=== PATIENT | male | born 1965 | race Caucasian/White ===

== ENCOUNTER 2018-11-20 09:48 | Inpatient (IN) ==
[2018-11-20] MEDS ORDERED: Aspirin 81 MG TAB.CHEW PO ONE (09:50)
[2018-11-20] MEDS ORDERED: Nitroglycerin 0.4 MG TAB.SUBL SL ONE (09:59)
[2018-11-20] MEDS: Nitroglycerin 0.4 MG TAB.SUBL SL PRN ×3 (10:04→10:17)
--- NOTE | 2018-11-20 10:05 | Emergency Department Note ---
Disposition Clinical Impression: Chest pain Qualifiers: Chest pain type: unspecified Qualified Code(s): R07.9 - Chest pain, unspecified Pancreatitis Qualifiers: Chronicity: acute Pancreatitis type: unspecified pancreatitis type Acute pancreatitis complication: unspecified Qualified Code(s): K85.90 - Acute pancreatitis without necrosis or infection, unspecified Disposition: Admitted As Inpatient Condition: Good Time of Disposition: 10:08 General Adult HPI - General Stated complaint: CP Time Seen by Provider: 11/20/18 09:49 Source: patient Mode of arrival: ambulatory Limitations: no limitations Nursing Notes Reviewed: Yes Vital Signs Reviewed: Yes - History of Present Illness HPI Narrative: 53 year old male presenst to the ED with complaints of chest pain that is midsternal and radaites across her chest without radiation. Garcia states that this started about 30 minutes ago and has multiple risk factors including HTN, hyperlipidemia, diabetes, and (+) family history o ACS, and he smokes, thus giving him moderate heart score without evidence of troponin. Garcia dnies exertinal dsypnea or diaphoresis but states that is started about 30 minutes ago. He is an eMT. He also has a history for pancreatitis and states that this time it feels different from his previous attacks. His last pacreatitis attack was over 4-5 years ago. Garcia denies cough, fever, or vomitting. Chest pain is descibred as sharp and pressure like. Garcia has no preivos history of DVt/PE - Related Data Previous Rx's Medication Instructions Recorded Meclizine [Antivert] 12.5 mg PO TID #30 tablet 03/05/18 Allergies Allergy/AdvReac Type Severity Reaction Status Date / Time No Known Allergies Allergy Verified 03/05/18 11:52 Constitutional: Denies: fever, chills, weakness, weight change Eyes: Denies: eye pain, eye discharge, vision change ENT ED: Denies: ear pain, throat pain, dental pain, hearing loss, epistaxis, congestion, dysphagia Cardiovascular: Reports: chest pain. Denies: palpitations, dyspnea on exertion, edema, syncope Respiratory: Denies: cough, dyspnea, wheezes, hemoptysis, stridor Gastrointestinal: Denies: abdominal pain, nausea, vomiting, diarrhea, constipation, hematemesis, melena, hematochezia Genitourinary: Denies: urgency, dysuria, frequency, hematuria Musculoskeletal: Denies: back pain, neck pain, arthralgia, myalgia Integumentary: Denies: rash, abrasion, lesions Neurological: Denies: headache, weakness, numbness, paresthesias, confusion, abnormal gait, vertigo Psychiatric: Denies: anxiety, depression, suicidal thoughts, homicidal thoughts, auditory hallucinations, visual hallucinations Endocrine: Denies: fatigue Hematological/Lymphatic: Denies: easy bleeding, easy bruising Allergic/Immunologic: Denies: facial swelling, urticaria Past Medical History - Past Medical History Medical history: Reports: diabetes, GERD, hyperlipidemia, hypertension Psychiatric history: Reports: anxiety, depression - Social History Smoking Status: Current every day smoker Alcohol use: Reports: rarely Drug use: Reports: none Physical Exam - General Limitations: no limitations General appearance: alert, in no apparent distress - Head Head exam: atraumatic, normocephalic, normal inspection - Eye Eye exam: Present: normal appearance, PERRL, EOMI - Expanded Eye Exam Pupils: Bilateral: reactive - ENT ENT exam: normal exam, normal oropharynx, mucous membranes moist - Expanded ENT Exam External ear exam: Present: normal external inspection Mouth exam: Present: normal external inspection Teeth exam: Present: normal inspection Throat exam: Present: normal inspection - Neck Neck exam: Present: normal inspection, full ROM, trachea midline - Chest Chest inspection: Present: normal inspection, symmetric chest wall rise - Respiratory Respiratory exam: Present: normal lung sounds bilaterally - Cardiovascular Cardiovascular exam: Present: regular rate, normal rhythm, normal heart sounds - Abdominal Exam Abdominal exam: Present: soft, Non-Tender. Absent: tenderness, distention, guarding, rebound, rigidity - Extremities Exam Extremities exam: Present: normal inspection, full ROM. Absent: tenderness, pedal edema - Expanded Upper Extremity Exam Shoulder exam: Present: normal inspection, full ROM Arm exam: Present: normal inspection, full ROM Elbow exam: Present: normal inspection, full ROM Forearm/Wrist exam: Present: normal inspection, full ROM Hand exam: Present: normal inspection, full ROM Vascular exam: Normal: capillary refill, radial pulse - Expanded Lower Extremity Exam Hip/Pelvis exam: Present: normal inspection, full ROM Upper leg exam: Present: normal inspection, full ROM Knee exam: Present: normal inspection, full ROM Lower leg exam: Present: normal inspection, full ROM Ankle exam: Present: normal inspection, full ROM Foot/toe exam: Present: normal inspection, full ROM Neurovascular/Tendon exam: Absent: motor deficit, sensory deficit, tendon deficit - Back Exam Back exam: Present: normal inspection, full ROM. Absent: tenderness - Neurological Exam Neurological exam: Present: alert, oriented X3 - Expanded Neurological Exam Patient oriented to: Present: person, place, time Coma Scale Eye Opening: Spontaneous Coma Scale Motor Response: Obeys Commands Coma Scale Verbal Response: Oriented Coma Scale Total: 15 - Psychiatric Psychiatric exam: Present: normal affect, normal mood - Skin Skin exam: Present: warm, dry, intact, normal color Course Course Narrative: will do a chest pain workup and add lipase/hepatic panels. - Consultations Consultation #1: discussed case with Dr. Hammer and she owen garcia for admission Time: 11:33 Vital Signs Temperature 98.6 F 11/20/18 09:56 Pulse Rate 64 11/20/18 09:56 Respiratory Rate 14 11/20/18 09:56 Blood Pressure 161/77 11/20/18 09:56 O2 Sat by Pulse Oximetry 100 11/20/18 09:56 Temperature 98.6 F 11/20/18 09:56 Pulse Rate 58 11/20/18 10:07 Respiratory Rate 14 11/20/18 09:56 Blood Pressure 123/79 11/20/18 10:07 O2 Sat by Pulse Oximetry 100 11/20/18 09:56 Oxygen Delivery Oxygen Delivery Room Air Medical Decision Making - Medical Records Medical records reviewed: Yes I reviewed the patient's medical records. - Lab Data Lab results reviewed: Yes I reviewed the patient's lab results. Result diagrams: 11/20/18 10:03 11/20/18 10:03 Lab Results 11/20/18 11/20/18 11/20/18 Range/Units 10:03 10:03 10:03 WBC 11.4 H (4.3-11.1) K/mcL RBC 5.08 (4.19-5.50) M/mcL Hgb 15.9 (12.9-16.9) g/dL Hct 45.8 (37.5-50.1) % MCV 90.2 (83.0-100.0) fL MCH 31.3 (28.0-33.3) pg MCHC 34.7 (31.6-35.5) g/dL RDW 12.5 (11.5-14.5) % Plt Count 302 (140-400) K/mcL MPV 9.8 (9.4-12.4) fL Immature Gran % 0.5 (0-4) % Seg Neutrophils % 54.2 % Lymphocytes % 35.1 % Monocytes % 7.7 % Eosinophils % 1.8 % Basophils % 0.7 % Neutrophils # 6.2 (1.6-8.9) K/mcL Lymphocytes # 4.0 (0.6-4.6) K/mcL Monocytes # 0.9 (0.0-1.3) K/mcL Eosinophils # 0.2 (0.0-0.6) K/mcL Basophils # 0.1 (0.0-0.2) K/mcL PT 11.2 (9.4-12.1) Seconds INR 1.0 APTT 30.9 (26.0-36.0) Seconds Sodium 137 (136-145) mEq/L Potassium 4.3 (3.5-5.1) mEq/L Chloride 103 (98-107) mEq/L Carbon Dioxide 22 L (23-29) mEq/L BUN 14 (6-20) mg/dL Creatinine 0.71 (0.70-1.30) mg/dL Est GFR ( Amer) > 60 (> 60) Est GFR (Non-Af Amer) > 60 (> 60) BUN/Creatinine Ratio 20 (6-26) Glucose 159 H (70-105) mg/dL Calculated Osmolality 288 (280-300) Calcium 9.9 (8.6-10.3) mg/dL Total Bilirubin 0.7 (0.3-1.0) mg/dL Direct Bilirubin 0.1 (0.0-0.2) mg/dL Indirect Bilirubin 0.6 (0.0-1.2) mg/dL ALT 21 (7-52) Units/L Alkaline Phosphatase 46 (34-104) Units/L Troponin I < 0.03 (< 0.04) ng/mL Serum Total Protein 7.4 (6.4-8.9) g/dL Albumin 4.7 (3.5-5.7) g/dL Globulin 2.7 (2.4-3.5) g/dL Albumin/Globulin Ratio 1.7 (1.1-2.2) Lipase > 1800 H (11-82) Units/L - Radiology Data Radiology results reviewed: Yes I reviewed the patient's radiology results. - EKG Data EKG #1 EKG attestation: Yes I reviewed and interpreted this EKG. EKG results narrative: NSR with rate of 66. NO STEMi. normal interlva. T wave flattening of V1. no change from 03/05/18. 0955 Heart Score - Score History: Moderately Suspicious EKG: Non Specific repolarisation Disturbance Age: 45-65 Risk Factors: Equal/Greater than 3 risk factor or history of atherosclerotic disease Troponin: Less than normal limit HEART Score Total: 5
[2018-11-20] MEDS ORDERED: GI Cocktail 40 ML EACH PO ONE (10:20)
[2018-11-20] MEDS ORDERED: *HR* FentaNYL (PF) 100 MCG/2 ML VIAL EP ONE (10:20)
[2018-11-20 10:27] LABS: Basophils # 0.1 K/mcL (0.0-0.2); Basophils % 0.7 %; Eosinophils # 0.2 K/mcL (0.0-0.6); Eosinophils % 1.8 %; Hematocrit 45.8 % (37.5-50.1); Hemoglobin 15.9 g/dL (12.9-16.9); Immature Granulocytes % 0.5 % (0-4); Lymphocytes % 35.1 %; Mean Corpuscular HGB Conc 34.7 g/dL (31.6-35.5); Mean Corpuscular Hemoglobin 31.3 pg (28.0-33.3); Mean Corpuscular Volume 90.2 fL (83.0-100.0); Mean Platelet Volume 9.8 fL (9.4-12.4); Monocytes # 0.9 K/mcL (0.0-1.3); Monocytes % 7.7 %; Neutrophils # 6.2 K/mcL (1.6-8.9); Platelet Count 302 K/mcL (140-400); Red Blood Count 5.08 M/mcL (4.19-5.50); Red Cell Distribution Width 12.5 % (11.5-14.5); Segmented Neutrophils % 54.2 %
[2018-11-20 10:35] LABS: Prothrombin Time 11.2 Seconds (9.4-12.1)
[2018-11-20 10:38] LABS: Activated Partial Thrombo Time 30.9 Seconds (26.0-36.0)
[2018-11-20 10:55] LABS: BUN/Creatinine Ratio 20 (6-26); Blood Urea Nitrogen 14 mg/dL (6-20); Carbon Dioxide 22 mEq/L (23-29); Chloride 103 mEq/L (98-107); Potassium 4.3 mEq/L (3.5-5.1); Sodium 137 mEq/L (136-145); Troponin I < 0.03 ng/mL (< 0.04)
[2018-11-20 10:56] LABS: Alanine Aminotransferase 21 Units/L (7-52); Albumin 4.7 g/dL (3.5-5.7); Albumin/Globulin Ratio 1.7 (1.1-2.2); Alkaline Phosphatase 46 Units/L (34-104); Bilirubin,Direct 0.1 mg/dL (0.0-0.2); Bilirubin,Indirect 0.6 mg/dL (0.0-1.2); Bilirubin,Total 0.7 mg/dL (0.3-1.0); Calcium 9.9 mg/dL (8.6-10.3); Globulin 2.7 g/dL (2.4-3.5); Glucose 159 mg/dL (70-105); Osmolality,Calculated 288 (280-300); Total Protein 7.4 g/dL (6.4-8.9); eGFR For Non-African Americans > 60 (> 60)
[2018-11-20 11:09] LABS: Lipase > 1800 Units/L (11-82)
[2018-11-20] MEDS ORDERED: *HR* Morphine 2 MG/ML SYRINGE IVP ONE (11:10)
[2018-11-20 11:47] LABS: Aspartate Amino Transferase 16 Units/L (13-39)
--- NOTE | 2018-11-20 13:13 | Internal Med History&Physical ---
Date of Encounter: 11/20/18 Time of Encounter: 13:12 Internal Medicine - H&P: HPI Chief complaint: CP History of present illness: 53 year old male with PMH HTN, hyperlipidemia, diabetes, and (+) family history o ACS, and TOBACCO abuse who presents to the ED with complaints of chest pain that is sharp and pressure and (like a band ) across his chest and radaites to abdomen. Patient denies associated dyspnea, diaphoresis, palpitation, paroxysmal nocturnal dyspnea, orthopnea or progressive worsening of lower extremity swelling. The patient have history of pancreatitis in light of that the ER obtained at these levels which was elevated, the patient troponin was within normal limit and EKG shows no significant ST-T wave changes, patient was admitted to rule out acute cardiac syndrome and for further management of pancreatitis. Past Med Surg Social Fam HX - Past Medical History Attestation: No The following information was validated with the patient. Medical history: diabetes, GERD, hyperlipidemia, hypertension Additional medical history: pancreatitits Psychiatric history: anxiety, depression - Social History Smoking Status: Current every day smoker Alcohol use: rarely Drug use: none Internal Medicine - H&P: Meds ALPRAZolam [Xanax 1 MG Tablet] 1 mg PO BID PRN 11/20/18 [History] Atenolol 100 mg PO DAILY 11/20/18 [History] Citalopram [CeleXA] 40 mg PO HS 11/20/18 [History] Gemfibrozil [Lopid] 600 mg PO BID 11/20/18 [History] GlipiZIDE 5 mg PO HS 11/20/18 [History] Melatonin 5 mg PO HS 11/20/18 [History] Omeprazole [PriLOSEC] 20 mg PO HS 11/20/18 [History] Simvastatin [Zocor] 40 mg PO HS 11/20/18 [History] Zolpidem [Ambien] 10 mg PO HS 11/20/18 [History] Zolpidem [Ambien] 10 mg PO HS 11/20/18 [History] metFORMIN [Glucophage] 500 mg PO HS 11/20/18 [History] Allergy/AdvReac Type Severity Reaction Status Date / Time No Known Allergies Allergy Verified 03/05/18 11:52 All Systems PM: A 10-system review of systems was performed and is negative for pertinent findings except as documented above in the HPI. - Constitutional Vitals: Temp Pulse Resp BP Pulse Ox 98.6 F 63 16 112/59 99 11/20/18 09:56 11/20/18 13:00 11/20/18 13:00 11/20/18 13:00 11/20/18 13:00 General appearance: Present: A&O X 3 Exam: As below - Head Head exam: Present: atraumatic, normocephalic - Eye Eye exam: Present: PERRL, conjuntiva pink, sclera anicteric Pupils: Present: PERRL - Neck Neck exam general surgery: Present: supple, trachea midline. Absent: lymphadenopathy - Respiratory Respiratory exam: Present: rhonchi. Absent: accessory muscle use, rales, wheezes - Cardiovascular Cardiovascular exam: Present: RRR, +S1, +S2. Absent: diastolic murmur, gallop, rubs, systolic murmur - GI/Abdominal GI/Abdominal exam: Present: normal bowel sounds, soft, tenderness, no peritoneal signs. Absent: distended - Extremities Exam Extremities exam: Present: warm, radial pulses palpable and symmetrical. Absent: calf tenderness, cyanotic, pedal edema - Neurological Exam Neurological exam: Present: CN II-XII intact, oriented X3, no focal deficits. Absent: pronater drift, facial droop, speech deficit - Skin Skin exam: Present: dry, intact Internal Med - H&P Results - Labs CBC & Chem 7: 11/21/18 03:35 11/21/18 03:35 Labs: Short CBC 11/20/18 Range/Units 10:03 WBC 11.4 H (4.3-11.1) K/mcL Hgb 15.9 (12.9-16.9) g/dL Hct 45.8 (37.5-50.1) % Plt Count 302 (140-400) K/mcL Neutrophils # 6.2 (1.6-8.9) K/mcL BMP 11/20/18 10:03 Sodium 137 Potassium 4.3 Chloride 103 Carbon Dioxide 22 L BUN 14 Creatinine 0.71 Glucose 159 H Calcium 9.9 Cardiac Enzymes 11/20/18 Range/Units 10:03 Troponin I < 0.03 (< 0.04) ng/mL Liver Function 11/20/18 Range/Units 10:03 Total Bilirubin 0.7 (0.3-1.0) mg/dL Direct Bilirubin 0.1 (0.0-0.2) mg/dL AST 16 (13-39) Units/L ALT 21 (7-52) Units/L Alkaline Phosphatase 46 (34-104) Units/L Albumin 4.7 (3.5-5.7) g/dL - Impressions ITS Impressions Chest X-Ray 11/20/18 09:50 IMPRESSION: No acute cardiopulmonary disease. D/ / 11/20/2018 10:10:47 Marquise Kelley MD / [employer] Interpreting Provider: Marquise Kelley MD - Assessment and Plan (1) Chest pain Current Visit: Yes Status: Acute Assessment and plan: Chest pain, atypical cardiac enzymes x 2 q 8 hr - EKG \ in AM - ASA - O2 by NC to keep SpO2 greater than 92% - CBCD, BMP in AM - Fasting lipids - Morphine 1 mg IV q 2-4 hr PRN chest pain - Tylenol 650 mg PO q 4-6 hr PRN headache - Heparin 5000 U SQ BID - 2D Echo Qualifiers: Chest pain type: unspecified Qualified Code(s): R07.9 - Chest pain, unspecified (2) Pancreatitis Current Visit: Yes Status: Acute Assessment and plan: NPO apart from meds, advance diet as serrated - IV fluid - EKG in AM - Morphine 2 mg IV q 2-4 hr PRN pain - Liver/gallbladder U/S - CBCD, CMP in AM Qualifiers: Chronicity: acute Pancreatitis type: unspecified pancreatitis type Acute pancreatitis complication: unspecified Qualified Code(s): K85.90 - Acute pancreatitis without necrosis or infection, unspecified (3) Hyperlipidemia Current Visit: Yes Status: Acute Assessment and plan: We will obtain fasting lipid profile in a.m., and continue home medications Qualifiers: Qualified Code(s): E78.5 - Hyperlipidemia, unspecified (4) Hypertension Current Visit: Yes Status: Acute Assessment and plan: We will continue home antihypertensive meds and monitor blood pressure while inpatient Qualifiers: Qualified Code(s): I10 - Essential (primary) hypertension (5) Diabetes mellitus Current Visit: Yes Status: Acute Assessment and plan: We will hold oral medication and We will start the patient and insulin sliding coverage with moderate insulin coverage Qualifiers: Qualified Code(s): E11.9 - Type 2 diabetes mellitus without complications (6) DVT prophylaxis Current Visit: Yes Status: Acute Assessment and plan: We will start heparin subcutaneous - Time Spent With Patient Total time spent is greater than 50% in coordination of care (as documented) at patient's floor/unit and/or counseling patient:
[2018-11-20] MEDS ORDERED: Acetaminophen 325 MG TABLET PO PRN (15:11)
[2018-11-20] MEDS ORDERED: Naloxone 0.4 MG/ML INJ IVP PRN (15:11)
[2018-11-20] MEDS ORDERED: Ondansetron ODT 4 MG TAB.RAPDIS SL PRN (15:11)
[2018-11-20] MEDS ORDERED: OXYCODONE Oral CONC 10 MG/0.5 ML ORAL.SYG SL PRN (15:16)
[2018-11-20] MEDS ORDERED: *HR* HYDROmorphone (PF) 1 MG/ML SYRINGE IVP ONE (15:45)
[2018-11-20] MEDS ORDERED: Nitroglycerin 0.4 MG TAB.SUBL SL PRN (15:51)
[2018-11-20] MEDS: 0.9 % Sodium Chloride 1,000 ML IVC SCH (16:07)
[2018-11-20] MEDS: Pantoprazole 40 MG VIAL IVP SCH (17:36)
[2018-11-20] MEDS: *HR* HYDROmorphone (PF) 1 MG/ML SYRINGE IVP PRN (20:15)
[2018-11-20] MEDS ORDERED: *HR* LORazepam 2 MG/ML VIAL IVP ONE (20:41)
[2018-11-20] MEDS: Ketorolac 15 MG/ML VIAL IVP PRN (23:08)
[2018-11-21] MEDS: *HR* HYDROmorphone (PF) 1 MG/ML SYRINGE IVP PRN ×5 (00:25→20:44)
[2018-11-21] MEDS: 0.9 % Sodium Chloride 1,000 ML IVC SCH ×2 (02:19→15:53)
[2018-11-21] MEDS: Ketorolac 15 MG/ML VIAL IVP PRN ×3 (03:36→18:53)
[2018-11-21 04:19] LABS: Basophils % 0.4 %; Eosinophils # 0.2 K/mcL (0.0-0.6); Eosinophils % 1.6 %; Hemoglobin 14.5 g/dL (12.9-16.9); Immature Granulocytes % 0.5 % (0-4); Lymphocytes # 3.5 K/mcL (0.6-4.6); Lymphocytes % 32.4 %; Mean Corpuscular HGB Conc 33.7 g/dL (31.6-35.5); Mean Corpuscular Volume 91.9 fL (83.0-100.0); Mean Platelet Volume 9.6 fL (9.4-12.4); Monocytes # 0.9 K/mcL (0.0-1.3); Monocytes % 8.3 %; Neutrophils # 6.1 K/mcL (1.6-8.9); Platelet Count 251 K/mcL (140-400); Red Blood Count 4.68 M/mcL (4.19-5.50); Red Cell Distribution Width 12.8 % (11.5-14.5); Segmented Neutrophils % 56.8 %
[2018-11-21 04:26] LABS: INR 1.1; Prothrombin Time 12.4 Seconds (9.4-12.1)
[2018-11-21 04:28] LABS: Activated Partial Thrombo Time 30.2 Seconds (26.0-36.0)
[2018-11-21 04:40] LABS: Alanine Aminotransferase 16 Units/L (7-52); Albumin 4.1 g/dL (3.5-5.7); Albumin/Globulin Ratio 1.8 (1.1-2.2); Alkaline Phosphatase 39 Units/L (34-104); Aspartate Amino Transferase 13 Units/L (13-39); BUN/Creatinine Ratio 18 (6-26); Bilirubin,Total 0.6 mg/dL (0.3-1.0); Blood Urea Nitrogen 15 mg/dL (6-20); Calcium 8.8 mg/dL (8.6-10.3); Carbon Dioxide 27 mEq/L (23-29); Chloride 104 mEq/L (98-107); Chol/HDL Ratio 5.3 (0-4.9); Cholesterol 144 mg/dL (< 200); Globulin 2.3 g/dL (2.4-3.5); Glucose 108 mg/dL (70-105); HDL Cholesterol 27 mg/dL (40-59); LDL Cholesterol,Calculated 63 mg/dL (0-99); Magnesium 1.9 mg/dL (1.6-2.6); Osmolality,Calculated 289 (280-300); Phosphorous 3.6 mg/dL (2.7-4.5); Potassium 3.9 mEq/L (3.5-5.1); Sodium 139 mEq/L (136-145); Total Protein 6.4 g/dL (6.4-8.9); Triglycerides 270 mg/dL (< 150); eGFR For Non-African Americans > 60 (> 60)
[2018-11-21] MEDS: Pantoprazole 40 MG VIAL IVP SCH ×2 (05:08→18:44)
--- NOTE | 2018-11-21 06:38 | Electrocardiograph Report ---
[place] [facility] Test Date: 2018-11-20 Pat Name: Kenneth Au Department: EXAM6 Room: 3B23 Gender: M [employer]: : 1965 Requested By: Ciera Severino Order Number: [id number] Reading MD: Yuri Dubose Measurements Intervals [place] Rate: 66 P: 66 SD: 168 QRS: 67 QRSD: 94 T: 51 QT: 427 QTc: 448 Interpretive Statements Sinus rhythm Electronically Signed On 11-21-2018 6:36:41 EDT by Yuri Dubose
[2018-11-21] MEDS: Aspirin 325 MG TABLET PO SCH (08:32)
[2018-11-21] MEDS ORDERED: *HR* Dextrose 50 % in Water (Syg) 50 ML SYRINGE IVP PRN (09:30)
[2018-11-21] MEDS ORDERED: D5% in Water 1,000 ML IVC PRN (09:30)
[2018-11-21] MEDS ORDERED: Dextrose Gel 15 GM/37.5 ML TUBE PO PRN ×2 (09:30)
[2018-11-21] MEDS: *HR* LORazepam 2 MG/ML VIAL IVP PRN ×2 (12:17→22:02)
[2018-11-21 12:34] LABS: Estimated Average Glucose 177 mg/dl; Hemoglobin A1C 7.8 %
[2018-11-21] MEDS: Insulin LISPRO 300 UNITS/3 ML VIAL SQ SCH ×2 (12:38→17:34)
--- NOTE | 2018-11-21 12:45 | Internal Med Progress Note ---
Hospitalist Progress Note - Encounter Date of Encounter: 11/21/18 Time of Encounter: 12:43 - Subjective Interval History: Patient seen and examined at bedside. Patient states that he feels better today. He states his abdominal pain is much improved today. He denies any chest pain, shortness of breath, nausea, vomiting, diarrhea. - Exam Vitals: Temp Pulse Resp BP Pulse Ox 97.8 F 79 16 143/77 95 11/21/18 12:26 11/21/18 12:26 11/21/18 12:11/21/18 12:11/21/18 12:26 Exam: Gen.: Alert and oriented 3, no acute distress Heart: Regular rate and rhythm, no murmurs, rubs, gallops Abdomen: Soft, tender to deep palpation in the epigastrium. Hypoactive bowel sounds. No rebound, guarding, rigidity. - Assessment and Plan (1) Pancreatitis Current Visit: Yes Status: Acute Assessment and Plan: Patient presented with signs and symptoms acute pancreatitis including epigastric pain and lipase greater than 1800. Obt[address] CT of abdomen and pelvis today which I personally reviewed that showed inflammation around the pancreas consistent with acute pancreatitis. Symptomatically the patient has improved and his pain is minimal at this time. Continue IV fluids and pain control. Allow patients and sips of water. If patient continues to improve then we will start clear liquid diet tomorrow. (2) Chest pain Current Visit: Yes Status: Resolved Assessment and Plan: Resolved. Likely due to acute pancreatitis. Highly doubt cardiac etiology. (3) Hyperlipidemia Current Visit: Yes Status: Acute Assessment and Plan: Mild hypertriglyceridemia, restart simvastatin and Lopid once able to take by mouth medication. (4) Hypertension Current Visit: Yes Status: Acute Assessment and Plan: Blood pressure stable at this time. (5) Diabetes mellitus Current Visit: Yes Status: Acute Assessment and Plan: Blood sugar under good control. Continue sliding scale insulin while nothing by mouth. Hemoglobin A1c 7.8. (6) DVT prophylaxis Current Visit: Yes Status: Acute Assessment and Plan: Heparin 5000 units subcutaneous twice a day - Time Spent with Patient Total time spent is greater than 50% in coordination of care (as documented) at patient's floor/unit and/or counseling patient: Internal Medicine: Result - Labs CBC & Chem 7: 11/21/18 03:35 11/21/18 03:35 Labs: Short CBC 11/21/18 Range/Units 03:35 WBC 10.7 (4.3-11.1) K/mcL Hgb 14.5 (12.9-16.9) g/dL Hct 43.0 (37.5-50.1) % Plt Count 251 (140-400) K/mcL Neutrophils # 6.1 (1.6-8.9) K/mcL BMP 11/21/18 03:35 Sodium 139 Potassium 3.9 Chloride 104 Carbon Dioxide 27 BUN 15 Creatinine 0.82 Glucose 108 H Calcium 8.8 Cardiac Enzymes 11/20/18 11/20/18 11/21/18 Range/Units 17:00 23:00 03:35 Troponin I < 0.03 < 0.03 < 0.03 (< 0.04) ng/mL Liver Function 11/21/18 Range/Units 03:35 Total Bilirubin 0.6 (0.3-1.0) mg/dL AST 13 (13-39) Units/L ALT 16 (7-52) Units/L Alkaline Phosphatase 39 (34-104) Units/L Albumin 4.1 (3.5-5.7) g/dL - ABG Interpretation ABG results: PT/INR, D-dimer PT 12.4 Seconds (9.4-12.1) H 11/21/18 03:35 - Impressions Impressions Echocardiogram 11/20/18 15:51 Impressions: LVEF 60%. Normal LV chamber size, wall thickness and function. Normal left ventricular diastolic function. Normal right ventricular structure and function. Mild mitral regurgitation. No evidence of pulmonary hypertension. Left Ventricular Wall Motion: Rest Echo Findings All wall segments showed normal motion. Findings: Study Quality * Technically adequate exam. ECG Findings * Sinus bradycardia. Left Ventricle * LVEF 60%. * Normal LV chamber size, wall thickness and function. * Normal left ventricular diastolic function. Right Ventricle * Normal right ventricular structure and function. Left Atrium * Normal left atrial size. Right Atrium * Normal right atrial size. Aortic Valve * Aortic valve not well visualized. * Mildly calcified aortic valve leaflets. * No aortic regurgitation. * No aortic stenosis. Mitral Valve * Mild mitral regurgitation. * No mitral stenosis. * Normal mitral valve structure. Tricuspid Valve * Normal tricuspid valve structure. * Trace tricuspid regurgitation. * No tricuspid stenosis. * No evidence of pulmonary hypertension. Pulmonic Valve * Pulmonic valve not well visualized. Aorta * Normally sized aortic root. Pericardium * The pericardium appears normal. IVC * The IVC is not well evaluated. Pulmonary Artery * Pulmonary artery not well visualized. Liver Ultrasound 11/20/18 15:53 IMPRESSION: 1. Hepatic steatosis and mild hepatomegaly. 2. Trace gallbladder sludge without ultrasound findings of acute cholecystitis or cholelithiasis. 3. Nonvisualization of the pancreas, obscured by overlying bowel gas. D/ / Fady Vigil / Fady Vigil Interpreting Provider: Fady Vigil Abdomen/Pelvis CT 11/21/18 07:32 IMPRESSION: Mild acute pancreatitis especially involving the pancreatic tail. Mild peripancreatic inflammatory stranding. Trace perisplenic ascites. Marked fatty infiltration of the liver. No evident calcified gallstone. No other acute abnormality identified. D/ / James Kessler MD / James Kessler MD Interpreting Provider: James Kessler MD Consult Discharge Plan - Plan Referrals: Yuri Dubose DO [Primary Care Provider] - 11/27/18 1:30 pm __ (1) Pancreatitis Qualifiers: Chronicity: acute Pancreatitis type: unspecified pancreatitis type Acute pancreatitis complication: unspecified Qualified Code(s): K85.90 - Acute pancreatitis without necrosis or infection, unspecified (2) Chest pain Qualifiers: Chest pain type: unspecified Qualified Code(s): R07.9 - Chest pain, unspecified (3) Hyperlipidemia Qualifiers: Qualified Code(s): E78.5 - Hyperlipidemia, unspecified (4) Hypertension Qualifiers: Qualified Code(s): I10 - Essential (primary) hypertension (5) Diabetes mellitus Qualifiers: Diabetes mellitus type: type 2 Diabetes mellitus group home insulin use: without moth exterminator use Diabetes mellitus complication status: without complication Qualified Code(s): E11.9 - Type 2 diabetes mellitus without complications
[2018-11-21] MEDS: Nicotine 21 MG PATCH.TD24 TD SCH (15:53)
[2018-11-21] MEDS: *HR* Heparin 5,000 UNIT/ML VIAL SQ SCH (18:44)
[2018-11-22] MEDS: Insulin LISPRO 300 UNITS/3 ML VIAL SQ SCH ×4 (00:25→17:04)
[2018-11-22] MEDS: 0.9 % Sodium Chloride 1,000 ML IVC SCH (02:22)
[2018-11-22] MEDS: *HR* HYDROmorphone (PF) 1 MG/ML SYRINGE IVP PRN (02:23)
[2018-11-22 05:29] LABS: Basophils % 0.5 %; Eosinophils # 0.3 K/mcL (0.0-0.6); Eosinophils % 3.1 %; Hematocrit 39.4 % (37.5-50.1); Hemoglobin 13.1 g/dL (12.9-16.9); Immature Granulocytes % 0.4 % (0-4); Lymphocytes # 2.6 K/mcL (0.6-4.6); Lymphocytes % 32.4 %; Mean Corpuscular HGB Conc 33.2 g/dL (31.6-35.5); Mean Corpuscular Volume 90.4 fL (83.0-100.0); Monocytes # 0.7 K/mcL (0.0-1.3); Monocytes % 8.5 %; Neutrophils # 4.5 K/mcL (1.6-8.9); Platelet Count 216 K/mcL (140-400); Red Blood Count 4.36 M/mcL (4.19-5.50); Red Cell Distribution Width 11.9 % (11.5-14.5); Segmented Neutrophils % 55.1 %
[2018-11-22] MEDS: Pantoprazole 40 MG VIAL IVP SCH ×2 (05:37→18:41)
[2018-11-22] MEDS: *HR* Heparin 5,000 UNIT/ML VIAL SQ SCH ×2 (05:37→18:41)
[2018-11-22 05:51] LABS: Alanine Aminotransferase 15 Units/L (7-52); Albumin 4.1 g/dL (3.5-5.7); Albumin/Globulin Ratio 1.9 (1.1-2.2); Alkaline Phosphatase 38 Units/L (34-104); Aspartate Amino Transferase 15 Units/L (13-39); BUN/Creatinine Ratio 17 (6-26); Bilirubin,Direct 0.1 mg/dL (0.0-0.2); Bilirubin,Indirect 0.5 mg/dL (0.0-1.2); Bilirubin,Total 0.6 mg/dL (0.3-1.0); Blood Urea Nitrogen 12 mg/dL (6-20); Calcium 8.8 mg/dL (8.6-10.3); Carbon Dioxide 24 mEq/L (23-29); Chloride 104 mEq/L (98-107); Globulin 2.2 g/dL (2.4-3.5); Glucose 87 mg/dL (70-105); Lipase 189 Units/L (11-82); Magnesium 1.8 mg/dL (1.6-2.6); Osmolality,Calculated 287 (280-300); Potassium 3.7 mEq/L (3.5-5.1); Sodium 139 mEq/L (136-145); Total Protein 6.3 g/dL (6.4-8.9); eGFR For Non-African Americans > 60 (> 60)
[2018-11-22] MEDS ORDERED: *HR* OxyCODONE Immed Rel 5 MG TABLET PO PRN ×2 (08:35)
[2018-11-22] MEDS: Nicotine 21 MG PATCH.TD24 TD SCH (08:49)
[2018-11-22] MEDS: Aspirin 325 MG TABLET PO SCH (08:49)
[2018-11-22] MEDS: ALPRAZolam 1 MG TABLET PO SCH ×2 (09:45→20:35)
--- NOTE | 2018-11-22 11:20 | Internal Med Progress Note ---
Hospitalist Progress Note - Encounter Date of Encounter: 11/22/18 Time of Encounter: 11:18 - Subjective Interval History: Patient seen and examined at bedside. Patient states that he continues to feel better. Denies any abdominal pain, chest pain, nausea, vomiting. He tolerated sips of water and ice chips yesterday okay. He states he is hungry. - Exam Vitals: Temp Pulse Resp BP Pulse Ox 98.5 F 53 20 146/78 98 11/22/18 07:11 11/22/18 07:11 11/22/18 07:11 11/22/18 07:11 11/22/18 07:11 Exam: Gen.: Alert and oriented 3, no acute distress Heart: Regular rate and rhythm, no murmurs, rubs, gallops Abdomen: Soft, nontender, normoactive bowel sounds. No rebound, guarding, rigidity. - Assessment and Plan (1) Pancreatitis Current Visit: Yes Status: Acute Assessment and Plan: Overall improving. Lipase significantly decreased. No pain on exam. We will start clear liquid diet today. Advance diet as tolerated. Discontinue IV pain control continue with oral pain medication as needed. (2) Chest pain Current Visit: Yes Status: Resolved Assessment and Plan: Resolved with this time, likely due to pancreatitis as above. (3) Hyperlipidemia Current Visit: Yes Status: Acute Assessment and Plan: Mild hypertriglyceridemia, restarted statin today. (4) Hypertension Current Visit: Yes Status: Acute Assessment and Plan: Blood pressure under adequate control at this time. (5) Diabetes mellitus Current Visit: Yes Status: Acute Assessment and Plan: Blood sugar under good control. Continue sliding scale insulin, transition to before meals at bedtime. Hemoglobin A1c 7.8. (6) DVT prophylaxis Current Visit: Yes Status: Acute Assessment and Plan: Heparin 5000 units subcutaneous twice a day - Time Spent with Patient Total time spent is greater than 50% in coordination of care (as documented) at patient's floor/unit and/or counseling patient: Internal Medicine: Result - Labs CBC & Chem 7: 11/22/18 05:06 11/22/18 05:06 Labs: Short CBC 11/22/18 Range/Units 05:06 WBC 8.1 (4.3-11.1) K/mcL Hgb 13.1 (12.9-16.9) g/dL Hct 39.4 (37.5-50.1) % Plt Count 216 (140-400) K/mcL Neutrophils # 4.5 (1.6-8.9) K/mcL BMP 11/22/18 05:06 Sodium 139 Potassium 3.7 Chloride 104 Carbon Dioxide 24 BUN 12 Creatinine 0.71 Glucose 87 Calcium 8.8 Liver Function 11/22/18 Range/Units 05:06 Total Bilirubin 0.6 (0.3-1.0) mg/dL Direct Bilirubin 0.1 (0.0-0.2) mg/dL AST 15 (13-39) Units/L ALT 15 (7-52) Units/L Alkaline Phosphatase 38 (34-104) Units/L Albumin 4.1 (3.5-5.7) g/dL - ABG Interpretation ABG results: PT/INR, D-dimer PT 12.4 Seconds (9.4-12.1) H 11/21/18 03:35 Consult Discharge Plan - Plan Referrals: Yuri Dubose DO [Primary Care Provider] - 11/27/18 1:30 pm (1) Pancreatitis Qualifiers: Chronicity: acute Pancreatitis type: unspecified pancreatitis type Acute pancreatitis complication: unspecified Qualified Code(s): K85.90 - Acute pancreatitis without necrosis or infection, unspecified (2) Chest pain Qualifiers: Chest pain type: unspecified Qualified Code(s): R07.9 - Chest pain, unspecified (3) Hyperlipidemia Qualifiers: Qualified Code(s): E78.5 - Hyperlipidemia, unspecified (4) Hypertension Qualifiers: Hypertension type: essential hypertension Qualified Code(s): I10 - Essential (primary) hypertension (5) Diabetes mellitus Qualifiers: Diabetes mellitus type: type 2 Diabetes mellitus custodial insulin use: without long term care pharmacist use Diabetes mellitus complication status: without complication Qualified Code(s): E11.9 - Type 2 diabetes mellitus without complications
[2018-11-22] MEDS ORDERED: Insulin LISPRO 300 UNITS/3 ML VIAL SQ SCH (21:00)
[2018-11-22] MEDS: Ketorolac 15 MG/ML VIAL IVP PRN (22:10)
[2018-11-23] MEDS: *HR* Heparin 5,000 UNIT/ML VIAL SQ SCH (05:27)
[2018-11-23] MEDS: Pantoprazole 40 MG VIAL IVP SCH (05:27)
[2018-11-23] MEDS: Ketorolac 15 MG/ML VIAL IVP PRN (05:36)
[2018-11-23 06:20] LABS: Basophils # 0.1 K/mcL (0.0-0.2); Basophils % 0.5 %; Eosinophils # 0.4 K/mcL (0.0-0.6); Eosinophils % 4.3 %; Hematocrit 40.7 % (37.5-50.1); Immature Granulocytes % 0.4 % (0-4); Lymphocytes % 32.7 %; Mean Corpuscular HGB Conc 34.4 g/dL (31.6-35.5); Mean Corpuscular Hemoglobin 30.6 pg (28.0-33.3); Mean Corpuscular Volume 89.1 fL (83.0-100.0); Mean Platelet Volume 10.1 fL (9.4-12.4); Monocytes # 0.8 K/mcL (0.0-1.3); Neutrophils # 4.9 K/mcL (1.6-8.9); Platelet Count 252 K/mcL (140-400); Red Blood Count 4.57 M/mcL (4.19-5.50); Red Cell Distribution Width 12.1 % (11.5-14.5); Segmented Neutrophils % 53.1 %
[2018-11-23 06:42] LABS: BUN/Creatinine Ratio 12 (6-26); Blood Urea Nitrogen 9 mg/dL (6-20); Calcium 9.8 mg/dL (8.6-10.3); Carbon Dioxide 27 mEq/L (23-29); Chloride 105 mEq/L (98-107); Glucose 119 mg/dL (70-105); Lipase 103 Units/L (11-82); Osmolality,Calculated 290 (280-300); Sodium 140 mEq/L (136-145); eGFR For Non-African Americans > 60 (> 60)
[2018-11-23 07:18] VITALS: BP 131/76
[2018-11-23] MEDS: Aspirin 325 MG TABLET PO SCH (08:06)
[2018-11-23] MEDS: ALPRAZolam 1 MG TABLET PO SCH (08:06)
[2018-11-23] MEDS: Nicotine 21 MG PATCH.TD24 TD SCH (08:06)
[2018-11-23] MEDS: Insulin LISPRO 300 UNITS/3 ML VIAL SQ SCH (08:09)
--- NOTE | 2018-11-23 11:32 | Discharge Summary ---
Orders not resulted at time of discharge: Pending orders 11/21/18 06:00 ECG 12 lead ECG [ECG] AM 0600 Date of Encounter: 11/23/18 Time of Encounter: 11:30 - Discharge Diagnosis (1) Pancreatitis Priority: Primary Status: Acute Qualifiers: Chronicity: acute Pancreatitis type: unspecified pancreatitis type Acute pancreatitis complication: unspecified Qualified Code(s): K85.90 - Acute pancreatitis without necrosis or infection, unspecified (2) Hyperlipidemia Priority: Secondary Status: Chronic Qualifiers: Qualified Code(s): E78.5 - Hyperlipidemia, unspecified (3) Hypertension Priority: Secondary Status: Chronic Qualifiers: Hypertension type: essential hypertension Qualified Code(s): I10 - Essential (primary) hypertension (4) Diabetes mellitus Priority: Secondary Status: Chronic Qualifiers: Diabetes mellitus type: type 2 Diabetes mellitus 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 Au is a 53 year old male with PMH HTN, HLD and diabetes who presented to [facility] on 11/20 2017 with complaints of abdominal pain. He was found to have acute pancreatitis and was admitted for further workup and treatment. ABD CT showed mild acute pancreatitis with marked fatty infiltration of the liver. His symptoms resolved with IV fluids, pain control and GI rest. Patient apparently also had complained of chest pain which was thought to be secondary to pancreatitis. He underwent an echocardiogram that showed preserved EF and no wall motion abnormalities. On day of discharge patient stated he was back to baseline. He denied chest pain, no shortness of breath, no abdominal pain, no nausea vomiting or diarrhea. He tolerated regular diet prior to discharge without difficulty. Patient stated he feels better and requested discharge home. Was advised to return to the ER if dominant symptoms recur. Patient verbalizes understanding. Discharge discussed with: patient - Time Spent with Patient Total time spent providing and/or coordinating discharge services: Time spent: Less than 30 minutes - Discharge Medications Prescriptions: Continued ALPRAZolam [Xanax 1 MG Tablet] 1 mg PO BID Melatonin 5 mg PO HS metFORMIN [Glucophage] 500 mg PO HS Gemfibrozil [Lopid] 600 mg PO BID Atenolol 50 mg PO DAILY Simvastatin [Zocor] 40 mg PO HS Omeprazole [PriLOSEC] 20 mg PO HS Zolpidem [Ambien] 10 mg PO HS Citalopram [CeleXA] 40 mg PO HS glipiZIDE [Glucotrol] 5 mg PO DAILY Home Medications: ALPRAZolam [Xanax 1 MG Tablet] 1 mg PO BID 11/20/18 [History] Atenolol 50 mg PO DAILY 11/20/18 [History] Citalopram [CeleXA] 40 mg PO HS 11/20/18 [History] Gemfibrozil [Lopid] 600 mg PO BID 11/20/18 [History] Melatonin 5 mg PO HS 11/20/18 [History] Omeprazole [PriLOSEC] 20 mg PO HS 11/20/18 [History] Simvastatin [Zocor] 40 mg PO HS 11/20/18 [History] Zolpidem [Ambien] 10 mg PO HS 11/20/18 [History] glipiZIDE [Glucotrol] 5 mg PO DAILY 11/20/18 [History] metFORMIN [Glucophage] 500 mg PO HS 11/20/18 [History] Allergies/Adverse Reactions: Allergy/AdvReac Type Severity Reaction Status Date / Time No Known Allergies Allergy Verified 11/21/18 16:24 Date of admission: 11/21/18 17:55 Primary care physician: Yuri Dubose DO Discharging clinician: Sherry Fofana Anticipated date of discharge: 11/23/18 - Constitutional Vitals: Temp Pulse Resp BP Pulse Ox 97.7 F 50 16 131/76 98 11/23/18 07:12 11/23/18 07:12 11/23/18 07:12 11/23/18 07:12 11/23/18 08:13 General appearance: Present: A&O X 3, pleasant, no acute distress Exam: . - Head Head exam: Present: atraumatic, normocephalic - Eye Eye exam: Present: PERRL, conjuntiva pink, sclera anicteric Pupils: Present: PERRL - Neck Neck exam general surgery: Present: supple, trachea midline. Absent: lymphadenopathy - Respiratory Respiratory exam: Present: CTAB. Absent: accessory muscle use, rales, rhonchi, wheezes - Cardiovascular Cardiovascular exam: Present: RRR, +S1, +S2. Absent: diastolic murmur, gallop, rubs, systolic murmur - GI/Abdominal GI/Abdominal exam: Present: normal bowel sounds, soft, no peritoneal signs. Absent: distended, tenderness - Extremities Exam Extremities exam: Present: warm, radial pulses palpable and symmetrical. Absent: calf tenderness, cyanotic, pedal edema - Neurological Exam Neurological exam: Present: CN II-XII intact, oriented X3, no focal deficits. Absent: pronater drift, facial droop, speech deficit - Skin Skin exam: Present: dry, intact - Patient Status Disposition: Home, Self-Care Condition: Good Functional capacity at discharge: independent ambulation Overall status at discharge: patient is back to baseline - Discharge Instructions Instructions: Pancreatitis (DC) Follow Up With: Yuri Dubose DO [Primary Care Provider] - 11/27/18 1:30 pm - Diet and Activity Activity: resume usual activities as tolerated Diet: advance to your usual diet
== END 2018-11-23 11:37 | disposition home or self-care (01) | DRG 440 ==
LOC: EMEROOARM 09:48 → 3BNU 09:48 → SUATTDRO 13:22 → 3BNU 14:07
PROVIDERS: ADMIT Internal Medicine Nephrology; ATTEND Internal Medicine

== ENCOUNTER 2020-02-25 03:39 | Inpatient (IN) ==
[2020-02-25] MEDS ORDERED: *HR* HYDROmorphone (PF) 1 MG/ML SYRINGE IVP ONE (04:17)
[2020-02-25] MEDS ORDERED: Ondansetron 4 MG/2 ML VIAL IVP ONE (04:17)
[2020-02-25 04:18] LABS: Basophils # 0.1 K/mcL (0.0-0.2); Basophils % 0.6 %; Eosinophils # 0.4 K/mcL (0.0-0.6); Eosinophils % 2.3 %; Hematocrit 46.2 % (37.5-50.1); Hemoglobin 15.8 g/dL (12.9-16.9); Immature Granulocytes % 0.7 % (0-4); Lymphocytes # 5.3 K/mcL (0.6-4.6); Lymphocytes % 29.1 %; Mean Corpuscular HGB Conc 34.2 g/dL (31.6-35.5); Mean Corpuscular Hemoglobin 30.6 pg (28.0-33.3); Mean Corpuscular Volume 89.4 fL (83.0-100.0); Mean Platelet Volume 10.3 fL (9.4-12.4); Monocytes # 1.9 K/mcL (0.0-1.3); Monocytes % 10.5 %; Neutrophils # 10.2 K/mcL (1.6-8.9); Platelet Count 323 K/mcL (140-400); Red Blood Count 5.17 M/mcL (4.19-5.50); Red Cell Distribution Width 12.6 % (11.5-14.5); Segmented Neutrophils % 56.8 %
[2020-02-25 04:25] LABS: Bilirubin,Urine Negative (Negative); Blood,Urine Negative (Negative); Clarity,Urine Clear (Clear); Color,Urine Light-Yellow (Yellow); Glucose,Urine (UA) 300 mg/dL (Normal); Ketones,Urine Negative (Negative); Leukocyte Esterase,Urine Negative (Negative); Mucus,Urine Few per lpf (None-Few); Nitrite,Urine Negative (Negative); PH,Urine 6.5 pH Units (5.0-8.0); Protein,Urine 30 mg/dL (Neg-Trace); RBC,Urine 0-3 per hpf (0-3); Specific Gravity,Urine 1.021 (1.010-1.025); Squamous Epithelial Cell,Urine Few per hpf (None-Few); Urobilinogen,Urine Normal (Normal); WBC,Urine 0-3 per hpf (0-3)
[2020-02-25 04:54] LABS: Alanine Aminotransferase 24 Units/L (7-52); Albumin 4.5 g/dL (3.5-5.7); Albumin/Globulin Ratio 1.6 (1.1-2.2); Alkaline Phosphatase 46 Units/L (34-104); Aspartate Amino Transferase 15 Units/L (13-39); BUN/Creatinine Ratio 25 (6-26); Bilirubin,Indirect 0.4 mg/dL (0.0-1.0); Bilirubin,Total 0.4 mg/dL (0.3-1.0); Blood Urea Nitrogen 18 mg/dL (6-20); Calcium 9.6 mg/dL (8.6-10.3); Carbon Dioxide 27 mEq/L (23-29); Chloride 99 mEq/L (98-107); Globulin 2.8 g/dL (2.4-3.5); Glucose 274 mg/dL (70-105); Lipase > 1800 Units/L (11-82); Osmolality,Calculated 292 (280-300); Sodium 135 mEq/L (136-145); Total Protein 7.3 g/dL (6.4-8.9); eGFR For African Americans > 60 (> 60); eGFR For Non-African Americans > 60 (> 60)
[2020-02-25] MEDS ORDERED: Ringers Solution, Lactated 1,000 ML IVC ONE (05:36)
[2020-02-25] MEDS ORDERED: *HR* HYDROmorphone (PF) 1 MG/ML SYRINGE IVP PRN (05:40)
[2020-02-25] MEDS ORDERED: D5% in Lactated Ringers 1,000 ML IVC SCH (05:45)
[2020-02-25] MEDS ORDERED: Naloxone 0.4 MG/ML INJ IVP PRN (06:32)
[2020-02-25] MEDS ORDERED: Ondansetron 4 MG/2 ML VIAL IVP PRN (06:32)
[2020-02-25] MEDS ORDERED: Isovue-370 500 ML BOTTLE IVP ONE (07:24)
[2020-02-25] MEDS: Ringers Solution, Lactated 1,000 ML IVC SCH ×2 (08:56→13:10)
[2020-02-25] MEDS ORDERED: *HR* Dextrose 50 % in Water (Vial) 50 ML VIAL IVP PRN (09:07)
[2020-02-25] MEDS ORDERED: D5% in Water 1,000 ML IVC PRN (09:07)
[2020-02-25] MEDS ORDERED: Dextrose Gel 15 GM/37.5 ML TUBE PO PRN ×2 (09:07)
[2020-02-25 09:22] LABS: Chol/HDL Ratio 6.3 (0-4.9); Cholesterol 183 mg/dL (< 200); HDL Cholesterol 29 mg/dL (40-59); Triglycerides 573 mg/dL (< 150)
[2020-02-25] MEDS: Ketorolac 30 MG/ML VIAL IVP PRN ×2 (13:10→21:10)
[2020-02-25] MEDS: Insulin LISPRO 300 UNITS/3 ML VIAL SQ SCH ×2 (13:12→17:37)
[2020-02-25] MEDS: *HR* HYDROmorphone (PF) 1 MG/ML SYRINGE IVP PRN ×2 (15:32→21:09)
[2020-02-25] MEDS ORDERED: Melatonin 3 MG TABLET PO SCH (21:00)
[2020-02-25] MEDS: gemfibroziL 600 MG TABLET PO SCH (21:07)
[2020-02-25] MEDS: Nicotine 21 MG PATCH.TD24 TD SCH (21:07)
[2020-02-25] MEDS: ALPRAZolam 1 MG TABLET PO SCH (21:08)
[2020-02-26] MEDS: Insulin LISPRO 300 UNITS/3 ML VIAL SQ SCH ×3 (00:41→12:19)
[2020-02-26] MEDS: Ketorolac 30 MG/ML VIAL IVP PRN (03:25)
[2020-02-26] MEDS ORDERED: *HR* Enoxaparin 40 MG/0.4 ML SYRINGE SQ SCH (06:00)
[2020-02-26] MEDS: *HR* HYDROmorphone (PF) 1 MG/ML SYRINGE IVP PRN (06:12)
[2020-02-26 07:55] VITALS: BP 145/76
[2020-02-26] MEDS: gemfibroziL 600 MG TABLET PO SCH (08:36)
[2020-02-26] MEDS: ALPRAZolam 1 MG TABLET PO SCH (08:36)
[2020-02-26] MEDS: Nicotine 21 MG PATCH.TD24 TD SCH (08:36)
[2020-02-26] MEDS ORDERED: Ringers Solution, Lactated 1,000 ML IVC SCH (09:00)
[2020-02-26] MEDS ORDERED: atenoloL 50 MG TABLET PO SCH (09:00)
[2020-02-26 09:41] LABS: Basophils # 0.1 K/mcL (0.0-0.2); Basophils % 0.7 %; Eosinophils # 0.3 K/mcL (0.0-0.6); Eosinophils % 2.9 %; Hematocrit 41.8 % (37.5-50.1); Hemoglobin 14.5 g/dL (12.9-16.9); Immature Granulocytes % 0.6 % (0-4); Lymphocytes # 3.6 K/mcL (0.6-4.6); Lymphocytes % 41.7 %; Mean Corpuscular HGB Conc 34.7 g/dL (31.6-35.5); Mean Corpuscular Hemoglobin 31.4 pg (28.0-33.3); Mean Corpuscular Volume 90.5 fL (83.0-100.0); Mean Platelet Volume 10.1 fL (9.4-12.4); Monocytes # 0.6 K/mcL (0.0-1.3); Monocytes % 6.9 %; Neutrophils # 4.1 K/mcL (1.6-8.9); Platelet Count 226 K/mcL (140-400); Red Blood Count 4.62 M/mcL (4.19-5.50); Red Cell Distribution Width 12.5 % (11.5-14.5); Segmented Neutrophils % 47.2 %
[2020-02-26 09:44] LABS: White Blood Count 8.7 K/mcL (4.3-11.1)
[2020-02-26 10:02] LABS: Alanine Aminotransferase 16 Units/L (7-52); Albumin 4.2 g/dL (3.5-5.7); Albumin/Globulin Ratio 1.8 (1.1-2.2); Alkaline Phosphatase 42 Units/L (34-104); Aspartate Amino Transferase 15 Units/L (13-39); BUN/Creatinine Ratio 31 (6-26); Bilirubin,Total 0.5 mg/dL (0.3-1.0); Blood Urea Nitrogen 22 mg/dL (6-20); Calcium 9.3 mg/dL (8.6-10.3); Carbon Dioxide 28 mEq/L (23-29); Chloride 102 mEq/L (98-107); Globulin 2.4 g/dL (2.4-3.5); Glucose 160 mg/dL (70-105); Lipase 126 Units/L (11-82); Magnesium 1.9 mg/dL (1.6-2.6); Osmolality,Calculated 291 (280-300); Phosphorous 4.7 mg/dL (2.7-4.5); Sodium 137 mEq/L (136-145); Total Protein 6.6 g/dL (6.4-8.9); eGFR For African Americans > 60 (> 60); eGFR For Non-African Americans > 60 (> 60)
[2020-02-26] MEDS ORDERED: Insulin LISPRO 300 UNITS/3 ML VIAL SQ SCH ×2 (16:30→21:00)
== END 2020-02-26 13:38 | disposition home or self-care (01) | DRG 282 ==
LOC: EMEROOARM 03:39 → 3BNU 03:39 → SUATTDRO 12:33
PROVIDERS: ADMIT Internal Medicine; ATTEND Internal Medicine

== ENCOUNTER 2020-03-08 14:33 | Observation (INO) ==
[2020-03-08] MEDS ORDERED: *HR* HYDROmorphone (PF) 1 MG/ML SYRINGE IVP STA (15:23)
[2020-03-08] MEDS ORDERED: 0.9 % Sodium Chloride 1,000 ML IVC ONE (15:23)
[2020-03-08] MEDS ORDERED: Ondansetron 4 MG/2 ML VIAL IVP ONE (15:23)
[2020-03-08] MEDS ORDERED: *HR* Dextrose 50 % in Water (Vial) 50 ML VIAL IVP PRN (16:13)
[2020-03-08] MEDS ORDERED: D5% in Water 1,000 ML IVC PRN (16:13)
[2020-03-08] MEDS ORDERED: Naloxone 0.4 MG/ML INJ IVP PRN (16:13)
[2020-03-08] MEDS ORDERED: Ondansetron 4 MG/2 ML VIAL IVP PRN (16:13)
[2020-03-08] MEDS ORDERED: Dextrose Gel 15 GM/37.5 ML TUBE PO PRN ×2 (16:13)
[2020-03-08] MEDS ORDERED: Acetaminophen 325 MG TABLET PO PRN (16:13)
[2020-03-08] MEDS ORDERED: Ringers Solution, Lactated 1,000 ML IVC SCH (16:30)
[2020-03-08 17:23] LABS: Chol/HDL Ratio 5.9 (0-4.9)
[2020-03-08 17:27] LABS: Magnesium 1.7 mg/dL (1.6-2.6); Phosphorous 3.3 mg/dL (2.7-4.5)
[2020-03-08] MEDS ORDERED: Insulin LISPRO 300 UNITS/3 ML VIAL SQ SCH (18:00)
[2020-03-08] MEDS: Nicotine 21 MG PATCH.TD24 TD SCH (18:41)
[2020-03-08] MEDS: Ringers Solution, Lactated 1,000 ML IVC SCH ×2 (18:41→23:18)
[2020-03-08] MEDS: *HR* HYDROmorphone (PF) 1 MG/ML SYRINGE IVP PRN (21:01)
[2020-03-09] MEDS: *HR* HYDROmorphone (PF) 1 MG/ML SYRINGE IVP PRN ×2 (03:05→08:11)
[2020-03-09] MEDS: Ringers Solution, Lactated 1,000 ML IVC SCH ×4 (03:59→20:24)
[2020-03-09] MEDS: *HR* Enoxaparin 40 MG/0.4 ML SYRINGE SQ SCH (05:06)
[2020-03-09 05:24] LABS: Basophils # 0.1 K/mcL (0.0-0.2); Basophils % 0.7 %; Eosinophils # 0.2 K/mcL (0.0-0.6); Eosinophils % 2.6 %; Hematocrit 40.1 % (37.5-50.1); Hemoglobin 13.5 g/dL (12.9-16.9); Immature Granulocytes % 0.5 % (0-4); Lymphocytes # 2.9 K/mcL (0.6-4.6); Lymphocytes % 35.5 %; Mean Corpuscular HGB Conc 33.7 g/dL (31.6-35.5); Mean Corpuscular Hemoglobin 30.9 pg (28.0-33.3); Mean Corpuscular Volume 91.8 fL (83.0-100.0); Mean Platelet Volume 10.3 fL (9.4-12.4); Monocytes # 0.7 K/mcL (0.0-1.3); Neutrophils # 4.2 K/mcL (1.6-8.9); Platelet Count 238 K/mcL (140-400); Red Blood Count 4.37 M/mcL (4.19-5.50); Red Cell Distribution Width 12.4 % (11.5-14.5); Segmented Neutrophils % 51.7 %; White Blood Count 8.1 K/mcL (4.3-11.1)
[2020-03-09 05:31] LABS: INR 1.1; Prothrombin Time 12.5 Seconds (9.4-12.1)
[2020-03-09 05:46] LABS: BUN/Creatinine Ratio 12 (6-26); Blood Urea Nitrogen 8 mg/dL (6-20); Calcium 9.1 mg/dL (8.6-10.3); Carbon Dioxide 28 mEq/L (23-29); Chloride 104 mEq/L (98-107); Glucose 131 mg/dL (70-105); Osmolality,Calculated 288 (280-300); Potassium 3.6 mEq/L (3.5-5.1); Sodium 139 mEq/L (136-145); eGFR For African Americans > 60 (> 60); eGFR For Non-African Americans > 60 (> 60)
[2020-03-09] MEDS: Nicotine 21 MG PATCH.TD24 TD SCH (09:19)
[2020-03-09 09:29] LABS: Estimated Average Glucose 235 mg/dl
[2020-03-09] MEDS: atenoloL 50 MG TABLET PO SCH (11:25)
[2020-03-09] MEDS: ALPRAZolam 0.5 MG TABLET PO SCH ×2 (11:25→20:26)
[2020-03-09] MEDS ORDERED: *HR* HYDROcodone/Acet 5/325 mg TABLET PO PRN (16:30)
[2020-03-09] MEDS: Melatonin 3 MG TABLET PO SCH (20:26)
[2020-03-09] MEDS: gemfibroziL 600 MG TABLET PO SCH (20:26)
[2020-03-09] MEDS ORDERED: *HR* HYDROmorphone (PF) 1 MG/ML SYRINGE IVP ONE ×2 (22:32→23:20)
[2020-03-10] MEDS: Ringers Solution, Lactated 1,000 ML IVC SCH ×5 (01:31→20:49)
[2020-03-10 02:06] LABS: Basophils # 0.1 K/mcL (0.0-0.2); Basophils % 0.9 %; Eosinophils # 0.3 K/mcL (0.0-0.6); Eosinophils % 3.1 %; Hematocrit 40.7 % (37.5-50.1); Hemoglobin 13.4 g/dL (12.9-16.9); Immature Granulocytes % 0.4 % (0-4); Lymphocytes # 3.2 K/mcL (0.6-4.6); Lymphocytes % 39.7 %; Mean Corpuscular HGB Conc 32.9 g/dL (31.6-35.5); Mean Corpuscular Hemoglobin 29.7 pg (28.0-33.3); Mean Corpuscular Volume 90.2 fL (83.0-100.0); Mean Platelet Volume 10.3 fL (9.4-12.4); Monocytes # 0.8 K/mcL (0.0-1.3); Monocytes % 9.3 %; Neutrophils # 3.8 K/mcL (1.6-8.9); Platelet Count 260 K/mcL (140-400); Red Blood Count 4.51 M/mcL (4.19-5.50); Red Cell Distribution Width 12.1 % (11.5-14.5); Segmented Neutrophils % 46.6 %; White Blood Count 8.2 K/mcL (4.3-11.1)
[2020-03-10 02:22] LABS: BUN/Creatinine Ratio 9 (6-26); Blood Urea Nitrogen 8 mg/dL (6-20); Calcium 9.8 mg/dL (8.6-10.3); Carbon Dioxide 33 mEq/L (23-29); Chloride 101 mEq/L (98-107); Glucose 152 mg/dL (70-105); Osmolality,Calculated 293 (280-300); Potassium 3.6 mEq/L (3.5-5.1); Sodium 141 mEq/L (136-145); eGFR For African Americans > 60 (> 60); eGFR For Non-African Americans > 60 (> 60)
[2020-03-10] MEDS: *HR* Enoxaparin 40 MG/0.4 ML SYRINGE SQ SCH (07:05)
[2020-03-10] MEDS: atenoloL 50 MG TABLET PO SCH (11:29)
[2020-03-10] MEDS: gemfibroziL 600 MG TABLET PO SCH ×2 (11:29→20:42)
[2020-03-10] MEDS: Nicotine 21 MG PATCH.TD24 TD SCH (11:29)
[2020-03-10] MEDS: ALPRAZolam 0.5 MG TABLET PO SCH ×2 (11:29→20:42)
[2020-03-10] MEDS ORDERED: *HR* HYDROcodone/Acet 5/325 mg TABLET PO PRN (11:55)
[2020-03-10] MEDS: Melatonin 3 MG TABLET PO SCH (20:42)
[2020-03-10] MEDS ORDERED: Nicotine 2 MG GUM BC PRN (21:31)
[2020-03-11] MEDS: Ringers Solution, Lactated 1,000 ML IVC SCH ×2 (01:14→05:06)
[2020-03-11] MEDS: *HR* Enoxaparin 40 MG/0.4 ML SYRINGE SQ SCH (05:07)
[2020-03-11 06:04] LABS: Basophils # 0.1 K/mcL (0.0-0.2); Basophils % 0.6 %; Eosinophils # 0.3 K/mcL (0.0-0.6); Hematocrit 40.2 % (37.5-50.1); Hemoglobin 13.7 g/dL (12.9-16.9); Immature Granulocytes % 0.2 % (0-4); Lymphocytes # 3.1 K/mcL (0.6-4.6); Lymphocytes % 37.1 %; Mean Corpuscular HGB Conc 34.1 g/dL (31.6-35.5); Mean Corpuscular Hemoglobin 30.7 pg (28.0-33.3); Mean Corpuscular Volume 90.1 fL (83.0-100.0); Mean Platelet Volume 10.3 fL (9.4-12.4); Monocytes # 0.7 K/mcL (0.0-1.3); Neutrophils # 4.1 K/mcL (1.6-8.9); Platelet Count 248 K/mcL (140-400); Red Blood Count 4.46 M/mcL (4.19-5.50); Segmented Neutrophils % 50.1 %; White Blood Count 8.3 K/mcL (4.3-11.1)
[2020-03-11 06:25] LABS: BUN/Creatinine Ratio 10 (6-26); Blood Urea Nitrogen 8 mg/dL (6-20); Calcium 9.8 mg/dL (8.6-10.3); Carbon Dioxide 32 mEq/L (23-29); Chloride 103 mEq/L (98-107); Glucose 143 mg/dL (70-105); Osmolality,Calculated 293 (280-300); Potassium 3.9 mEq/L (3.5-5.1); Sodium 141 mEq/L (136-145); eGFR For African Americans > 60 (> 60); eGFR For Non-African Americans > 60 (> 60)
[2020-03-11 06:44] VITALS: BP 125/84
[2020-03-11] MEDS: atenoloL 50 MG TABLET PO SCH (07:59)
[2020-03-11] MEDS: ALPRAZolam 0.5 MG TABLET PO SCH (07:59)
[2020-03-11] MEDS: Nicotine 21 MG PATCH.TD24 TD SCH (08:00)
[2020-03-11] MEDS: gemfibroziL 600 MG TABLET PO SCH (08:00)
== END 2020-03-11 10:58 | disposition home or self-care (01) ==
LOC: 3BNU 14:33 → EMEROOARM 14:33 → SUATTDRO 16:03 → 3BNU 18:28
PROVIDERS: ADMIT Student in an Organized Health Care Education/Training Program; ATTEND Internal Medicine